=== PATIENT | female | born 1955 | race Caucasian/White ===

== ENCOUNTER 2016-06-01 12:49 | Outpatient (CLI) | payer OTHER ==
--- NOTE | 2016-06-01 13:33 | DIAGNOSTIC IMAGING REPORT ---
PROCEDURE: XR CHEST 2 VIEW INDICATION: COPD TECHNIQUE: PA and lateral views. COMPARISON: Chest 02/06/2016 FINDINGS: The cardiomediastinal contour is normal. No central venous congestion. The pulmonary arteries are prominent. The lungs hyperinflated but clear without focal consolidation, pleural effusion or pneumothorax. The osseous structures are intact. IMPRESSION: 1. No acute disease. 2. Findings of COPD/emphysema.
== END 2016-06-01 23:00 ==
LOC: XR SRH 12:49
DX: J43.9 Emphysema, unspecified (principal); F17.200 Nicotine dependence, unspecified, uncomplicated; Z86.32 Personal history of gestational diabetes; Z80.0 Family history of malignant neoplasm of digestive organs

== ENCOUNTER 2016-06-22 14:58 | Outpatient (CLI) | payer OTHER | END 2016-06-22 23:00 | LOC: RT SRH 14:58 | DX: J44.9 Chronic obstructive pulmonary disease, unspecified (principal); F17.200 Nicotine dependence, unspecified, uncomplicated ==